=== PATIENT | female | born 2000 | race Caucasian/White ===

== ENCOUNTER 2021-02-17 17:12 | Emergency (ER) | payer OTHER ==
[~2021-02-17] VITALS: Ht 172.7 cm; Wt 60.4 kg
--- NOTE | 2021-02-17 18:00 | NUR ---
ambulatory with assistance to restroom.
--- NOTE | 2021-02-17 18:14 | NUR ---
Pt arrived BIB EMS from home due to concerns that she may have injured a nerve in her spine. Pt is currently intoxicated and has been since 9pm last night and continued to drink when she woke up this AM. Pt also states that she has taken oxy, adderal, and tylenol. Pt states that she "blacked out last night" and "woke up still drunk" and then couldnt make it to her Gen Chem Final that was scheduled for today. Pt placed on BP and O2 monitors, VSSANKIT. WCTM.
--- NOTE | 2021-02-17 18:29 | NUR ---
Pt re-dressed self and disconnected all monitors, currently on facetime with a friend talking about "how fun last night" was
--- NOTE | 2021-02-17 18:51 | NUR ---
Report to [facility]
[2021-02-17 19:07] VITALS: BP 122/71
[2021-02-17 19:18] LABS: BASOPHILS % (AUTO) 1 % (0-1); EOSINOPHILS % (AUTO) 1 % (1-7); LYMPHOCYTES % (AUTO) 15 % (22-44); MEAN CORPUSCULAR HEMOGLOBIN 28.6 pg (27.0-34.8); MEAN CORPUSCULAR HGB CONC 33.2 g/dL (32.4-35.8); MEAN PLATELET VOLUME 9.3 fL (7.4-10.4); MONOCYTES % (AUTO) 8 % (2-9); NEUTROPHILS % (AUTO) 75 % (42-75); PLATELET COUNT 383 x10^3/uL (130-400); RED BLOOD COUNT 4.56 x10^6/uL (3.82-5.3)
[2021-02-17 19:20] LABS: MD NO
[2021-02-17 19:27] LABS: ALBUMIN 4.1 g/dL (3.4-5.0); ANION GAP 11 mmol/L (5-15); CALCIUM 8.8 mg/dL (8.5-10.1); CHLORIDE 109 mmol/L (98-107)
[2021-02-17 19:30] LABS: ALANINE AMINOTRANSFERASE 24 U/L (12-78); ALKALINE PHOSPHATASE 74 U/L (45-117); BILIRUBIN,TOTAL 0.9 mg/dL (0.2-1.0); TOTAL PROTEIN 7.7 g/dL (6.4-8.2)
[2021-02-17] MEDS ORDERED: POTASSIUM CHLORIDE 20 MEQ TAB.ER.PRT ONE (19:47)
--- NOTE | 2021-02-17 19:50 | NUR ---
pt medicated per emar, pt states feeling better
[2021-02-17] MEDS ORDERED: POTASSIUM CHLORIDE 20 MEQ TAB.ER.PRT PO ONE (20:00)
== END 2021-02-17 20:25 | disposition home or self-care (01) ==
LOC: ED 17:42
DX: F41.1 Generalized anxiety disorder (principal); R06.4 Hyperventilation; E87.6 Hypokalemia
CPT/HCPCS: 36415; 80053; 80320; 85025; 99283; G0480